=== PATIENT | male | born 1980 | race Caucasian/White ===

== ENCOUNTER 2024-03-10 12:39 | Inpatient (IN) | payer BC, OTHER ==
[2024-03-10 13:07] LABS: #Basophils 0.04 10x3/uL (0.0-0.2); %Basophils 0.4 % (0.0-1.0); %Eosinophils 1.3 % (0.0-10.0); %Lymphocytes 15.4 % (21.0-51.0); %Monocytes 6.9 % (0.0-10.0); %Neutrophils 75.7 % (42.0-75.0); Hematocrit 50.5 % (42.0-52.0); Mean Corpuscular HGB CONC 33.7 g/dL (32.0-36.0); Mean Corpuscular Hemoglobin 31.4 pg (27.0-31.0); Mean Corpuscular Volume 93.3 fL (78.0-98.0); Mean Platelet Volume 9.4 fL (7.4-10.4); Platelet Count 242 10x3/uL (130-400); Red Blood Cell (RBC) Count 5.41 mill/uL (4.70-6.10)
[2024-03-10 13:25] LABS: ALT (SGPT) 17 U/L (8-55); AST (SGOT) 17 U/L (5-34); Alkaline Phosphatase 65 U/L (40-110); Anion Gap 14 mmol/L (10-20); BUN (Urea Nitrogen) 11 mg/dL (8.9-20.6); Bilirubin, Total 0.5 mg/dL (0.2-1.2); Calc. Creatinine Clearance 0 mL/min (70-130); Calcium 9.4 mg/dL (7.8-10.44); Carbon Dioxide 22 mmol/L (22-29); Chloride 107 mmol/L (98-107); Estimated GFR 107; Globulin 3.5 g/dL (2.4-3.5); Glucose 107 mg/dL (70-105); Potassium 3.9 mmol/L (3.5-5.1); Protein, Total 7.5 g/dL (6.0-8.3); Sodium 139 mmol/L (136-145)
[2024-03-10] MEDS ORDERED: Ketorolac Tromethamine 30 MG (1 mL) VIAL ONE (13:25)
[2024-03-10 13:48] LABS: Troponin I 0.477 ng/mL (< 0.028)
[2024-03-10] MEDS ORDERED: Aspirin Chewable 81 MG TAB ONE (14:14)
[2024-03-10] MEDS ORDERED: Ondansetron ODT 4 MG TAB PO PRN (15:06)
[2024-03-10 17:58] LABS: Critical Call Chem Troponin I RESULT DECREASING; Troponin I 0.421 ng/mL (< 0.028)
[2024-03-10] MEDS: Acetaminophen 325 MG TAB PO PRN (18:23)
[2024-03-10] MEDS: Ketorolac Tromethamine 30 MG (1 mL) VIAL IVP SCH (20:27)
[2024-03-10] MEDS: Metoprolol Tartrate 25 MG TAB PO SCH (20:28)
[2024-03-10] MEDS: Nitroglycerin 2% Ointment 1 INCH/1 GM Packet TOP SCH (21:27)
[2024-03-10 21:31] LABS: Troponin I 0.456 ng/mL (< 0.028)
[2024-03-11] MEDS: HYDROcodone/Acetaminophen 10/325 mg Tablet PO PRN (03:17)
[2024-03-11 03:53] LABS: #Basophils 0.07 10x3/uL (0.0-0.2); %Basophils 0.5 % (0.0-1.0); %Eosinophils 1.9 % (0.0-10.0); %Lymphocytes 17.3 % (21.0-51.0); %Monocytes 8.7 % (0.0-10.0); %Neutrophils 71.2 % (42.0-75.0); Hematocrit 52.3 % (42.0-52.0); Hemoglobin 17.1 g/dL (14.0-18.0); Mean Corpuscular HGB CONC 32.7 g/dL (32.0-36.0); Mean Corpuscular Hemoglobin 31.1 pg (27.0-31.0); Mean Corpuscular Volume 95.3 fL (78.0-98.0); Mean Platelet Volume 9.4 fL (7.4-10.4); Platelet Count 265 10x3/uL (130-400); RBC Distribution Width 12.8 % (11.5-14.5); Red Blood Cell (RBC) Count 5.49 mill/uL (4.70-6.10)
[2024-03-11 04:30] LABS: Anion Gap 13 mmol/L (10-20); BUN (Urea Nitrogen) 11 mg/dL (8.9-20.6); Calc. Creatinine Clearance 127 mL/min (70-130); Carbon Dioxide 23 mmol/L (22-29); Cardiac Risk 5.3 (Less than 4.5); Chloride 107 mmol/L (98-107); Cholesterol 165 mg/dl (< 200 Desired); Estimated GFR 96; Glucose 110 mg/dL (70-105); HDL Cholesterol 31 mg/dL (>60 Neg Risk); LDL Cholesterol, Calculated 104 mg/dL; Sodium 139 mmol/L (136-145); Triglycerides 150 mg/dL (Less than 150)
[2024-03-11] MEDS: Aspirin 325 mg Enteric Coated Tablet PO SCH (08:39)
[2024-03-11] MEDS: Enoxaparin 40 MG (0.4 mL) SYRINGE SC SCH (08:40)
[2024-03-11] MEDS: Enoxaparin 60 MG (0.6 mL) SYRINGE SC SCH (11:33)
[2024-03-11] MEDS: AMOXicillin 250 MG CAP PO SCH (14:48)
[2024-03-11] MEDS: Amlodipine 5 MG TAB PO SCH (16:57)
[2024-03-11] MEDS: Enoxaparin 100 MG (1 mL) SYRINGE SC SCH (21:02)
[2024-03-11] MEDS: Atorvastatin Calcium 40 MG TAB PO SCH (21:02)
[2024-03-11] MEDS: hydrALAZINE 20 MG/ML VIAL SLOW IVP SCH (22:26)
[2024-03-12] MEDS ORDERED: Midazolam HCl 2 mg/2 ml Vial ONE (07:42)
[2024-03-12] MEDS ORDERED: Adenosine 6 mg (2 mL) VIAL ONE (07:42)
[2024-03-12] MEDS ORDERED: Heparin 10,000 UNITS/ 10 ML VIAL ONE (07:42)
[2024-03-12] MEDS ORDERED: fentaNYL 50 mcg/mL 1 mL Vial ONE (07:42)
[2024-03-12] MEDS ORDERED: Verapamil 5 MG/2 ML VIAL ONE (07:42)
[2024-03-12] MEDS ORDERED: Nitroglycerin 50 MG/250 ML BOT 0 ML ONE (07:43)
[2024-03-12] MEDS ORDERED: cefTRIAXone (ROCEPHIN) 2 GM VIAL ONE (07:46)
[2024-03-12] MEDS: Ampicillin/Sulbactam 3 GM in Sodium Chloride 0.9% 100 ML IVPB SCH (12:54)
[2024-03-13 07:50] LABS: #Basophils 0.04 10x3/uL (0.0-0.2); %Basophils 0.4 % (0.0-1.0); %Eosinophils 1.4 % (0.0-10.0); %Lymphocytes 20.2 % (21.0-51.0); %Monocytes 9.4 % (0.0-10.0); Hematocrit 53.5 % (42.0-52.0); Hemoglobin 17.5 g/dL (14.0-18.0); Mean Corpuscular HGB CONC 32.7 g/dL (32.0-36.0); Mean Corpuscular Hemoglobin 30.6 pg (27.0-31.0); Mean Corpuscular Volume 93.5 fL (78.0-98.0); Mean Platelet Volume 9.4 fL (7.4-10.4); Platelet Count 242 10x3/uL (130-400); RBC Distribution Width 12.8 % (11.5-14.5); Red Blood Cell (RBC) Count 5.72 mill/uL (4.70-6.10)
[2024-03-13 08:02] LABS: Anion Gap 14 mmol/L (10-20); BUN (Urea Nitrogen) 13 mg/dL (8.9-20.6); Calc. Creatinine Clearance 0 mL/min (70-130); Calcium 9.6 mg/dL (7.8-10.44); Carbon Dioxide 26 mmol/L (22-29); Chloride 106 mmol/L (98-107); Estimated GFR 89; Glucose 110 mg/dL (70-105); Potassium 4.4 mmol/L (3.5-5.1); Sodium 142 mmol/L (136-145)
[2024-03-13 10:56] VITALS: BMI 30.2
[2024-03-13] MEDS ORDERED: Communication Order-Pharmacy FS SCH (11:45)
[2024-03-14] MEDS ORDERED: Adenosine 6 mg (2 mL) VIAL ONE (06:43)
[2024-03-14] MEDS ORDERED: Verapamil 5 MG/2 ML VIAL ONE (06:44)
[2024-03-14] MEDS ORDERED: Nitroglycerin 50 MG/250 ML BOT 250 ML ONE (06:44)
[2024-03-14] MEDS ORDERED: Heparin 10,000 UNITS/ 10 ML VIAL ONE (06:44)
[2024-03-14] MEDS ORDERED: fentaNYL 50 mcg/mL 1 mL Vial ONE (07:48)
[2024-03-14] MEDS ORDERED: Midazolam HCl 2 mg/2 ml Vial ONE (07:48)
[2024-03-14] MEDS ORDERED: Acetaminophen/Codeine 30-300mg Tablet PO PRN ×2 (10:24)
[2024-03-14] MEDS ORDERED: Nitroglycerin 0.4 MG TAB (25 Tab Bottle) SL PRN (10:24)
[2024-03-14] MEDS ORDERED: Sodium Chloride 0.9% 200 ML IV PRN (10:24)
[2024-03-14] MEDS: Sodium Chloride 0.9% 1,000 ML IV SCH (10:30)
[2024-03-14] MEDS ORDERED: Iopamidol 370 76% 100 ML VIAL ONE (14:42)
[2024-03-15 08:21] VITALS: BP 128/82; TEMP 97.3
[2024-03-15] MEDS: Clopidogrel Bisulfate 300 MG TAB PO SCH (09:51)
[2024-03-16] MEDS ORDERED: Clopidogrel Bisulfate 75 MG TAB PO SCH (09:00)
[2024-03-16] MEDS ORDERED: Aspirin 81 mg Enteric Coated Tablet PO SCH (09:00)
== END 2024-03-15 10:01 | disposition home or self-care (01) | DRG 281 ==
LOC: ERS 12:39 → ERHOLD 14:32 → OBS 16:13 → OBSVTOIN 03-12 15:05
PROVIDERS: ADMIT Internal Medicine; ATTEND Internal Medicine
PROC: 4A023N7 Measurement of Cardiac Sampling and Pressure, Left Heart, Percutaneous Approach (ICD-10-PCS; principal; 2024-03-14)
PROC: B2111ZZ Fluoroscopy of Multiple Coronary Arteries using Low Osmolar Contrast (ICD-10-PCS; 2024-03-14)
DX: I21.4 Non-ST elevation (NSTEMI) myocardial infarction (principal); L03.211 Cellulitis of face; I20.0 Unstable angina; K04.7 Periapical abscess without sinus; F17.210 Nicotine dependence, cigarettes, uncomplicated; Z79.899 Other long term (current) drug therapy; Z71.6 Tobacco abuse counseling; Z82.49 Family history of ischemic heart disease and other diseases of the circulatory system
CPT/HCPCS: 36415; 71045; 80048; 80053; 80061; 84484; 85025; 93005; 93306; 93458; 94760; 96372; 96374; 96375; 96376; C1769; C1894; G0378; J0153; J0295; J0360; J0696; J1644; J1650; J1885; J2250; J3010; Q9967